=== PATIENT | male | born 1965 | race Caucasian/White ===

== ENCOUNTER 2017-05-29 11:35 | Day surgery (SDC) | payer OTHER ==
[2017-05-29] VITALS (9 sets, daily range): BP systolic 107–162; BP diastolic 71–95; PULSE 63–79; RESP 15–40; Ht 165.1 cm; Wt 58.9 kg
[~2017-05-29] VITALS: Ht 165.1 cm; Wt 58.9 kg
[~2017-05-29 11:35] MED LIST: CEFAZOLIN 2 GM/50 ML (PMX) 50 ML IVPB ONE; SOD CHLORIDE 0.9% 1,000 ML IV ONE
[2017-05-29] MEDS ORDERED: PROPOFOL 20 ML ONE (12:19)
[2017-05-29] MEDS ORDERED: CEFAZOLIN 1 GM INJ ONE (12:19)
[2017-05-29] MEDS ORDERED: MIDAZOLAM 1 MG/ML 2 ML INJ ONE (12:19)
[2017-05-29] MEDS ORDERED: ONDANSETRON 4 MG INJ ONE (12:34)
[2017-05-29] MEDS ORDERED: METOCLOPRAMIDE 10 MG INJ ONE (12:34)
[2017-05-29] MEDS ORDERED: DEXAMETHASONE 4 MG/ML 1 ML INJ ONE (12:34)
[2017-05-29] MEDS ORDERED: KETOROLAC 30 MG INJ ONE (12:34)
[2017-05-29] MEDS ORDERED: BUPIVACAINE 0.25% (MPF) 30 ML INJ ONE (12:36)
[2017-05-29] MEDS ORDERED: EPHEDrine SULFATE 50 MG/5 ML SYG ONE (12:46)
[2017-05-29] MEDS ORDERED: DIPHENHYDRAMINE 50 MG INJ IV PRN (13:00)
[2017-05-29] MEDS ORDERED: hydrALAzine 20 MG INJ IV PRN (13:00)
[2017-05-29] MEDS ORDERED: ONDANSETRON 4 MG INJ IV PRN (13:00)
[2017-05-29] MEDS ORDERED: OXYCODONE/ACETAMINOPHEN (5/325) TAB PO PRN (13:00)
[2017-05-29] MEDS ORDERED: METOCLOPRAMIDE 10 MG INJ IV PRN (13:00)
[2017-05-29] MEDS ORDERED: MEPERIDINE 25 MG INJ IV PRN (13:00)
[2017-05-29] MEDS ORDERED: FENTAnyl 50 MCG/ML VIAL IV PRN ×3 (13:00)
[2017-05-29] MEDS ORDERED: EPHEDrine SULFATE 50 MG/5 ML SYG IV PRN (13:00)
[2017-05-29] MEDS ORDERED: LABETALOL HCL 20MG INJ IV PRN (13:00)
[2017-05-29] MEDS ORDERED: HYDROCODONE/APAP (5/325) TAB PO ONE (13:30)
--- NOTE | 2017-05-29 13:31 | SIPON ---
Date/Time of Note Date/Time of Note DATE: 05/29/17 TIME: 13:28 Operative Report Preoperative Diagnosis left hand ganglion cyst x 2 Postoperative Diagnosis same Operation/Procedure Performed 1. left hand dorsal ganglion cyst excision 2 cm cyst 2 cm incision 2. left hand ventral ganglion cyst excision 4 cm cyst 4 cm incision 3. localized adjacent tissue transfer with the use of skin flaps 12 sq cm defect 4. therapeutic injection of subcutaneous marcaine cpt code 74395 Surgeon see signature line diet assistant none Anesthesia: general Estimated blood loss: 0 - 10 ml's Transfusion Required none Specimen left hand dorsal ganglion cyst left hand ventral ganglion cyst Grafts/Implants none Complications none Sai SNIDER May 29, 2017 13:31
--- NOTE | 2017-05-29 14:26 | OPR ---
DATE OF OPERATION: 05/29/2017 INDICATION: This is a 51-year-old male with left hand dorsal and ventral ganglion cyst. He requested surgical excision. Risks, alternatives, benefits, and personnel were discussed with the patient. Patient expressed understanding. Consents to the operation. PREOPERATIVE DIAGNOSES: 1. Left hand ventral ganglion cyst. 2. Left hand dorsal ganglion cyst. POSTOPERATIVE DIAGNOSES: 1. Left hand ventral ganglion cyst. 2. Left hand dorsal ganglion cyst. OPERATION: 1. Excision of left hand ventral ganglion cyst with 4 cm size incision and 4 cm size cyst. 2. Left hand dorsal ganglion cyst excision with 2 cm size incision and 2 cm size cyst. 3. Localized adjacent tissue transfer with use of skin flaps of 12 square cm defect. 4. Therapeutic subcutaneous Marcaine injection. SURGEON: Deonna Stevens SPECIMEN: 1. Left hand dorsal ganglion cyst. 2. Left hand ventral ganglion cyst. ESTIMATED BLOOD LOSS: 15 mL. COMPLICATIONS: None. ANESTHESIA: General. OPERATIVE PROCEDURE: Patient taken to the OR, prepped and draped in usual sterile fashion. Surgical time-out was performed. IV antibiotics were given. Ventral incision over the left hand ganglion cyst is made transversely with a 15 blade. Dissection cautery was carried down to the cyst and the cyst was bluntly dissected out. The cyst was excised en bloc and the contents are also extruded. There is superficial veins that were ligated with 3-0 Vicryl and 5-0 Prolene to get control. Patient had some prominent veins in the superficial area. After the incision, this was closed due to a tissue defect with localized adjacent tissue transfer with use of skin flaps. Multilayered closure with interrupted 3-0 Vicryl and running 4-0 Monocryl. Therapeutic subcutaneous Marcaine is injected throughout the incision site. Attention was then paid to the left hand dorsal ganglion cyst. This incision was made with a 15 blade transversely. Dissection cautery was carried down to the cyst. The cyst is extruded. A minimal portion of the cyst was excised and discarded. Hemostasis was established. Due to the tissue defect localized adjacent tissue transfer with use of skin flaps was performed in multilayered closure with interrupted 3-0 Vicryl and running 4-0 Monocryl. Therapeutic subcutaneous Marcaine was injected throughout both sites and Dermabond was applied. Dictated By: Deonna Stevens /fnt/ak /Document#: [id number]
== END 2017-05-29 15:16 | disposition home or self-care (01) ==
LOC: SDS 11:35
PROVIDERS: ATTEND Surgery
DX: M67.432 Ganglion, left wrist (principal)
CPT/HCPCS: 25111; 88304; J0690; J1100; J1885; J2250; J2405; J2765; J3010; Z7512; Z7610